=== PATIENT | male | born 1985 | race Caucasian/White ===

== ENCOUNTER 2019-05-14 04:46 | Emergency (ER) | payer BC ==
[~2019-05-14] VITALS: Ht 182.9 cm; Wt 158.8 kg
[2019-05-14 05:04] VITALS: BP 172/88
== END 2019-05-14 05:05 | disposition home or self-care (01) ==
LOC: M.ERS 04:46
DX: T16.2XXA Foreign body in left ear, initial encounter (principal); W22.8XXA Striking against or struck by other objects, initial encounter; Y93.89 Activity, other specified; Y92.89 Other specified places as the place of occurrence of the external cause; Y99.8 Other external cause status